=== PATIENT | female | born 1960 | race Caucasian/White ===

== ENCOUNTER 2016-09-30 09:34 | Emergency (ER) | payer SELFPAY ==
[2016-09-30 09:47] VITALS: TEMP 98.4
--- NOTE | 2016-09-30 10:01 | RAD ---
EXAM DESCRIPTION: Chest,1 View CLINICAL HISTORY: 56 years Female, chest discomfort, cough noted COMPARISON: None. TECHNIQUE: AP portable chest. FINDINGS: A portable single upright view of the chest shows normal sized heart and normal vascularity with clear lung riojas. The aorta is mildly tortuous and the vascularity is normal with unremarkable appearance of the hilar and mediastinal structures. No infiltrates or effusions are noted. No pulmonary masses are evident. IMPRESSION: Normal chest, one view Electronically signed by: Nic Cruz MD 09/30/2016 10:00 AM CDT
[2016-09-30] MEDS ORDERED: KETOROLAC TROMETHAMINE INJ 30 MG/ML VIAL IV ONE (10:05)
--- NOTE | 2016-09-30 10:09 | ED.PDOC ---
History of Present Illness - General Chief Complaint: Chest Pain/RI Stated Complaint: Chest discomfort Time Seen by Provider: 09/30/16 10:04 Source: patient Exam Limitations: no limitations - History of Present Illness Initial Comments: C/O PAIN TO R CHEST. ONSET 2 WEEKS AGO, INTERMITTENT BUT MUCH WORSE LAST PM. R STERNAL AREA, RADIATES TO BACK. MODERATE IN INTENSITY. PLEURITIC Activities at Onset: rest Improving Factors: nothing Nitro Today/Relief: no nitro taken today Aspirin Treatment Today: no aspirin today Allergies/Adverse Reactions: Allergies NO KNOWN ALLERGY Allergy (Verified 09/30/16 09:46) Home Medications: Ambulatory Orders Albuterol Inhaler [Ventolin Hfa Inhaler] 2 puff INH Q4HR PRN #1 inh 09/30/16 Doxycycline (Monohydrate) [Doxycycline Monohydrate] 100 mg PO BID #20 cap Indomethacin 50 mg PO TID PRN #14 cap 09/30/16 Review of Systems - Review of Systems Constitutional: Denies: chills, fever EENTM: States: no symptoms reported Respiratory: States: cough - NO SPUTUM PRODUCTION, short of breath. Denies: orthopnea Cardiology: States: chest pain. Denies: edema, syncope Gastrointestinal/Abdominal: Denies: abdominal pain, diarrhea, nausea, vomiting Musculoskeletal: States: no symptoms reported Skin: States: other - NO DIAPHORESIS Neurological: States: no symptoms reported Endocrine: States: no symptoms reported Hematologic/Lymphatic: States: no symptoms reported Past Medical History (General) - Patient Medical History Hx Stroke: No Hx of COPD: Yes - PT HAS HX OF L SIDED LUNG MASS WHICH RESOLVED AFTER HOSP AND "MEDS" Hx Congestive Heart Failure: No Hx Diabetes: No Hx MRSA: No Surgical History: Hysterectomy - Vaccination History Hx Influenza Vaccination: Yes - 2016 Hx Pneumococcal Vaccination: Yes - 2016 Immunizations Comment: 2016 - Shingles immunization - Social History Hx Tobacco Use: Yes - 07/2016 - Female History Patient is a Female of Child Bearing Age (10 -59 yrs old): No - Hysterectomy Family Medical History - Family History Mother Family History: No Known Living Status: Physical Exam - Physical Exam General Appearance: Alert, Anxious, No apparent distress Eyes, Ears, Nose, Throat Exam: PERRL/EOMI, normal ENT inspection Neck: non-tender, full range of motion, supple Respiratory: lungs clear, normal breath sounds, no respiratory distress, other - SATS 98% RA, NL Cardiovascular/Chest: regular rate, rhythm, no murmur Gastrointestinal/Abdominal: normal bowel sounds, non tender, soft, no organomegaly Extremity: normal range of motion, non-tender, normal inspection Neurologic: alert, oriented x 3 Skin Exam: normal color, warm/dry Lymphatic: no adenopathy Progress - Progress Progress: 09/30/16 10:51 FEELS BETTER AFTER TORADOL. - EKG/XRAY/CT EKG: Sinus - RATE 85, NL AXIS, NL INTERVALS, LAE, , nonspecific ST T wave Chg - NAIP, NO OLD XRAY: chest - RAPHAEL Departure - Departure Clinical Impression: Pleurisy Acute bronchitis Qualifiers: Bronchitis organism: unspecified organism Qualified Code(s): J20.9 - Acute bronchitis, unspecified Time of Disposition: 10:52 Disposition: Discharge to Home or Self Care Condition: Good Departure Forms: ED Discharge - Pt. Copy, Patient Portal Self Enrollment Instructions: DI for Pleurisy, DI for Acute Bronchitis Prescriptions: Albuterol Inhaler [Ventolin Hfa Inhaler] 2 puff INH Q4HR PRN #1 inh PRN Reason: Shortness Of Breath/Wheezing Doxycycline (Monohydrate) [Doxycycline Monohydrate] 100 mg PO BID #20 cap Indomethacin 50 mg PO TID PRN #14 cap PRN Reason: Pain Home Medications: Ambulatory Orders Albuterol Inhaler [Ventolin Hfa Inhaler] 2 puff INH Q4HR PRN #1 inh 09/30/16 Doxycycline (Monohydrate) [Doxycycline Monohydrate] 100 mg PO BID #20 cap Indomethacin 50 mg PO TID PRN #14 cap 09/30/16
[2016-09-30 11:29] VITALS: BP 105/56; O2SAT 99
== END 2016-09-30 11:23 | disposition home or self-care (01) ==
LOC: ER 09:34
DX: J20.9 Acute bronchitis, unspecified (principal); R09.1 Pleurisy; Z87.891 Personal history of nicotine dependence
CPT/HCPCS: 36415; 71010; 80048; 80076; 82550; 82553; 83880; 84484; 85025; 85610; 85730; J1885